=== PATIENT | female | born 1990 | race Native Hawaiian/Other Pacific Islander ===

== ENCOUNTER 2019-06-20 20:45 | Emergency (ER) | payer OTHER ==
[~2019-06-20] VITALS: Ht 170.2 cm; Wt 71.2 kg
[~2019-06-20 20:45] MED LIST: CIPRO500 MG PO
[2019-06-20 22:01] LABS: PLATELET COUNT 328 K/uL (152-353)
[2019-06-20 22:08] LABS: POTASSIUM 3.4 mmol/L (3.6-5.2)
[2019-06-20 22:50] VITALS: BP 128/78; TEMP 98.3
== END 2019-06-20 22:50 | disposition home or self-care (01) ==
LOC: ED 20:45
PROVIDERS: Emergency Medicine
DX: N20.1 Calculus of ureter (principal)
CPT/HCPCS: 80053; 81000; 81025; 83605; 85027; 87040; 96360; 96375; 99284; J1885